=== PATIENT | female | born 1945 | race Caucasian/White ===

== ENCOUNTER 2017-09-04 08:52 | Observation (INO) | payer MEDICARE, OTHER ==
[~2017-09-04 08:52] MED LIST: RINGER'S SOLUTION,LACTATED 1,000 ML IV PRN; ceFAZolin SODIUM 1 GM VIAL IV PRN
[2017-09-04] MEDS ORDERED: RINGER'S SOLUTION,LACTATED 1,000 ML IV ONE ×3 (09:50→11:31)
--- NOTE | 2017-09-04 12:02 | OR ---
Operative Report - Dictated Report Narrative: Date: 09/04/2017 Physician: Lm Bartholomew M.D. Coffee Grower: Sai Durham PA-C Preoperative diagnosis: Right intra-articular olecranon fracture Postoperative diagnosis: Right intra-articular olecranon fracture Procedure: Open reduction internal fixation of right olecranon fracture Anesthesia: General Plus regional Complications: None Estimated blood loss: Minimal Tourniquet time: 80 Minutes at 250 mmHg Specimens: None Retained implants: Andujar and nephew 6.5 mm x 110 mm cannulated partially threaded screw and washer, 18-gauge stainless steel wire Drains: None Indications: Mariam is a 72 year-old female who fell from standing height and sustained a right displaced olecranon fracture. She was initially seen in the emergency department and placed in a temporary splint and then followed up in the orthopedic clinic for further evaluation. Plain films from the emergency department demonstrated a simple, displaced, intra-articular fracture of the right olecranon. Given the patient's age, activity level, and displacement of the fracture with intra-articular involvement I recommended open reduction internal fixation. The risks, benefits, and alternatives were discussed in clinic. The risks being bleeding, infection, nerve, tendon, blood vessel injury , malunion/nonunion, stiffness, persistent pain, wound complications, and symptomatic implants. Consent was obtained in the clinic. Procedure: After marking the correct extremity in the preoperative holding area, a timeout was performed in the operating room. General followed by regional anesthetic was performed by the nurse supervisor plating and point assembly without complication. The patient was then placed in the left lateral decubitus position on a beanbag with the operative arm supported by a bone foam ramp. IV antibiotics consisting of 1 g of Ancef were administered prior to the procedure. A well-padded tourniquet was applied to the operative upper arm. The arm was exsanguinated and the tourniquet was inflated to 250 mmHg. the right upper extremity was then prepped and draped in usual sterile fashion. A longitudinal incision was made over the olecranon just medial to the midline to avoid excessive tension on the wound. This was approximately 12 cm in length. A combination of blunt dissection and electrocautery was carried down through the subcutaneous tissue to the level of the proximal ulna. The ulnar nerve was identified by palpation and protected throughout the case. The fracture site was identified and a sharp knife was utilized to debride the fracture edges to obtain good fracture leads. The fracture was held open with a [place] elevator and a pituitary rongeur was used to debride the fracture site of all hematoma and soft tissue. The fracture was then reduced using the distal humerus as a template and utilizing 2 [id number] bone reduction clamps to hold our reduction. Reduction was confirmed using the mini C-arm which demonstrated good reduction and less than 2 mm articular gap. Given the simple nature of the fracture without comminution we chose to proceed with a tension band construct utilizing a partially threaded 6.5 mm cannulated screw. The terminally threaded guidewire was advanced from the tip of the olecranon across the fracture site and into the ulnar shaft using mini C-arm to confirm its position. This was taken across the fracture site by at least 6 cm and our screw length was measured to be 110 mm. The 5.5 mm cannulated drill was then advanced down over the guidewire and drilled to a depth of 115 mm. A 110 mm cannulated partially threaded screw with a washer was then advanced across the fracture site and left about 5 mm proud in order to place our tension wire. Next we turned our attention to placing our tension wire. A site approximately 4 cm distal to the fracture was chosen and subperiosteal dissection was carried out on the dorsal and volar aspect of the ulna and a hole was drilled across the ulna with a 2.0 mm drill bit. An 18-gauge stainless steel wire was then passed through the drill hole and then crossed and passed up and around the screw underneath the washer and then tightened down on both sides using heavy needle drivers. Once the wire was appropriately tensioned the excess wire was removed with the wire coiler and the twisted ends were bent and flatten down to the surface of the ulna so as not to be prominent. We then advanced our 6.5 mm screw with a washer down to bone being careful not to over compress the fracture. We then confirmed the position of our implants and the our fracture reduction on mini C-arm and noted our reduction to be near anatomic with minimal articular gapping at the fracture site. At this point the wounds were copiously irrigated with normal saline. The deep fascia over the ulna was closed with running 0 Vicryl suture. Subcutaneous tissues tissue was then closed with interrupted 3-0 Vicryl. The skin was closed with interrupted 4-0 nylon and sterile dressings consisting of Xeroform, 4 x 4, soft roll, and a posterior long-arm splint were applied.. All sponge, needle, blade, and instrument counts were correct prior to closing the wounds. The patient was awoken and transferred to the postanesthesia care unit in stable condition.
--- NOTE | 2017-09-04 12:58 | OR ---
Anesthesia Procedure Note - Anesthesia Procedure Note Date of Service: 09/04/17 Narrative: Vital Signs - Last Taken Temp 36.4 C L 09/04/17 12:30 Pulse 75 09/04/17 12:50 Resp 16 09/04/17 12:50 BP 175/86 09/04/17 12:50 Pulse Ox 96 09/04/17 12:50 O2 Oxygen Delivery Method Room Air 09/04/17 12:56 ANESTHESIA PROCEDURE NOTE Date of Procedure: 09/04/2016. Time of procedure: 1020. Performed by: Tomás Arboleda CRNA Slackline Operator: None. Preprocedure diagnosis: Right olecranon fracture. Post procedure diagnosis: Same. Procedure: Right ultrasound guided supraclavicular nerve block for postoperative analgesia. Indications: The patient is a 72 -year-old female, who is requesting a right ultrasound-guided supraclavicular nerve block for postoperative analgesia related to low RIF of right olecranon fracture. Findings: See below. Details of the procedure: The tissue over the intended target site was cleansed with ChloraPrep. 1 ml Lidocaine 1 % was infiltrated to the skin and subcutaneous tissue. Under sterile technique and ultrasound guidance a 22-gauge block needle was inserted to the right braclial plexus nerve bundle superior to the clavicle and lateral to the axillary artery. 40 mL's of 0.5% bupivacaine plus epinephrine 1:200,000 was injected after negative aspiration for blood. Needle tip and spread of local anesthetic around the brachial plexus was observed throughout the injection with realtime ultrasound visualization. The needle was removed intact. No complications were noted. The images were retained in the hospital medical database . EBL: Minimal. Fluids: N/A. Specimen: N/A. Post procedure condition: The patient tolerated the procedure well. No complications were noted. Thank you for this consultation. Tomás Arboleda CRNA
[2017-09-04] MEDS ORDERED: hydrALAZINE HCL 20 MG/ML VIAL IV PRN (15:16)
[2017-09-04] MEDS: LISINOPRIL 20 MG TABLET PO SCH (16:48)
--- NOTE | 2017-09-04 21:39 | HP ---
Chief Complaint - Chief Complaint Date of Service: 09/04/17 Time of Service: 21:09 Chief Complaint: Hypertensive urgency, s/p ORIF of right olecranon fracture History of Present Illness: 72 years old female adm to the hospital from medical management from surgical services due to hypertensive urgency post -op. PMH Right arm fracture, no other pertinent medial conditions pt otherwise healthy. pt stated she slipped on ice Dec , she was unconcerned until she noticed that her arm was getting swollen and in pain. She went to [facility] clinic where a X-Ray was obtained and showed she had a Right intra-articular Olecranon fracture. She had appt with ortho and elected procedure for ORIF of right Olecranon fracture today. On adm BP 212/90 after lisinopril 20mg bP 157/92, plan of care discussed with pt she verbalized understanding and agree. - Patient's Past Medical History Patient History - Medical: No pertinent hx Patient History - Cardiac/Respiratory: No pertinent hx Patient History - Cancer: No Hx of Cancer Patient History - Surgical Procedures: Appendectomy, Orthopedic - S/P ORIF right Olecranon fracture Patient History - Other: None LMP (females 10-50): Post-Menopausal - Family History Mother Family History - Medical: , No pertinent hx Family History - Cardiac/Respiratory: No pertinent hx Family History - Cancer: Other - ovarian Sister Family History - Medical: , No pertinent hx Family History - Cardiac/Respiratory: No pertinent hx Family History - Cancer: Other Brother Family History - Medical: , Other Family History - Cardiac/Respiratory: No pertinent hx Family History - Cancer: No pertinent family hx - Social History Living Situations: spouse Abuse History: No History of abuse Psych History: No pertinent hx Smoking Status: Former smoker - quit 2004 Have you smoked in the past 12 months: No Do you dip or chew tobacco: No Alcohol Use: other Drug Use: none Review Of Systems (GEN) - Review of Systems Generalized/Overall Review: Present: No Symptoms Reported EENTM: Present: No Symptoms Reported Respiratory: Present: No Symptoms Reported Cardiac: Present: No Symptoms Reported Abdominal: Present: No Symptoms Reported Genitourinary: Present: No Symptoms Reported Musculoskeletal: Present: Other - Right arm pain s/p ORIF, swelling to right hand and fingers Neurological: Present: Tingling - Fingers right hand Skin: Present: No Symptoms Reported Allergies/Adverse Reactions: Allergies Allergy/AdvReac Type Severity Reaction Status Date / Time acetaminophen [From Tylenol] Allergy Intermediate Other Verified 09/04/17 17:20 Home Medications: HOME MEDICATIONS oxyCODONE HCL [Oxycodone] 5 mg PO Q4H PRN #40 tablet 09/04/17 [Last Taken Unknown] Exam - Exam Vital Signs: Vital Signs - Last Taken Temp 36.4 C L 09/04/17 19:19 Pulse 71 09/04/17 19:19 Resp 16 09/04/17 19:19 BP 177/86 09/04/17 19:19 Pulse Ox 99 09/04/17 19:19 Constitutional: Present: Alert, Oriented x3, Cooperative, No distress, Elderly ENT Exam: Present: hearing grossly normal Eye Exam: bilateral eye: normal inspection Neck: Present: full range of motion Back Exam: Present: normal inspection Breasts: Present: Exam deferred Respiratory: Present: chest non-tender, lungs clear, normal breath sounds, no respiratory distress Cardiovascular/Chest: Present: normal peripheral pulses, regular rate, rhythm, no chest tenderness, no edema, no gallop, no murmur Peripheral Pulses: dorsalis-pedis (R): 3+, dorsalis-pedis (L): 3+ Abdomen: Present: Normal bowel sounds, soft, nontender, nondistended, no rebound tenderness /Rectal: Present: Exam deferred Extremity: Present: other - Right arm immobile sling s/p ORIF, Skin Exam: Present: normal color, warm/dry, no cyanosis Neurologic: Present: oriented x 3 Appearance: Present: appropriate appearance Eye contact: Present: cooperative, good eye contact Thoughts: Present: normal thought pattern Assessment/Plan - Narrative Narrative: Hypertensive urgency On adm BP 212/90, post op pt BP continue to remain elevated Hospitalist consulted for medical management Lisinopril and Hydralazine PRN, repeated BP 157/92 after Lisinopril 20mg Will continue to monitor VS POD#0 ORIF of right Olecranon fracture secondary to Right intra-articular Olecranon fracture pt stated she slipped on Ice Aug 25, injury arm but didnt seek help until a few days later She was seen at the [facility] in [place] where she was diagnoses with the fracture She followed up with ortho service and had elective procedure done today Code status: Full VTE ppx: SCD and ambulate GI ppx: pepcid Time: 45 minutes and case discussed with Dr Butcher - Procedures Results: Open reduction internal fixation of right olecranon fracture - Assessment/Plan (1) Hypertensive urgency Problem: Acute (2) S/P ORIF (open reduction internal fixation) fracture Problem: Acute
[2017-09-04] MEDS: FAMOTIDINE 20 MG TABLET PO SCH (21:45)
[2017-09-05] MEDS: oxyCODONE HCL 5 MG TABLET PO PRN ×3 (00:53→13:26)
--- NOTE | 2017-09-05 06:39 | DS ---
(1) Hypertensive urgency Problem: Resolved (2) S/P ORIF (open reduction internal fixation) fracture Problem: Acute (3) Hypertension Problem: Acute Qualifiers: Hypertension type: essential hypertension Qualified Code(s): I10 - Essential (primary) hypertension Description of Stay: 72 years old female adm to the hospital from medical management from surgical services due to hypertensive urgency post -op. PMH Right arm fracture, no other pertinent medial conditions pt otherwise healthy. pt stated she slipped on ice Aug 25, she was unconcerned until she noticed that her arm was getting swollen and in pain. She went to [facility] clinic where a X-Ray was obtained and showed she had a Right intra-articular Olecranon fracture. She had appt with ortho and elected procedure for ORIF of right Olecranon fracture. On adm BP 212/ 90 after lisinopril 20mg BP 157/92--->144/69. During this adm pt remain medically stable, pain was well controlled and she is stable for discharge home. She will follow up with Dr Butcher for Hypertension, plan to monitor blood pressure at home and continue with Lisinopril 20mg daily. Her filled prescription for pain medications. She will see ortho service for further management post-op. Procedures Performed: see notes below List Procedures: POD#1 S/P ORIF of right Olecranon fracture. Discharge Disposition: Home self care Disposition: Home self-care Condition: Stable Discharge Activity: Activity as tolerated Discharge Diet: Low salt Care Home Therapy: Physicial Therapy Prescriptions (Any new or edited meds): Lisinopril 20 mg PO DAILY #30 tablet Complete Home Medications List: Complete Home Medication List: oxyCODONE HCL [Oxycodone] 5 mg PO Q4H PRN #40 tablet 09/04/17 Lisinopril 20 mg PO DAILY #30 tablet 09/05/17
[2017-09-05] MEDS: LISINOPRIL 20 MG TABLET PO SCH (09:18)
[2017-09-05] MEDS: FAMOTIDINE 20 MG TABLET PO SCH (09:19)
[2017-09-05 10:31] VITALS: BP 136/63
== END 2017-09-05 13:42 | disposition home or self-care (01) ==
LOC: AMB 08:52 → MS 14:38
PROVIDERS: ADMIT Internal Medicine; ATTEND Internal Medicine
PROC: 0PSK04Z Reposition Right Ulna with Internal Fixation Device, Open Approach (ICD-10-PCS; principal; 2017-09-04)
DX: S52.031A Displaced fracture of olecranon process with intraarticular extension of right ulna, initial encounter for closed fracture (principal); I16.0 Hypertensive urgency; I10 Essential (primary) hypertension; Z68.21 Body mass index [BMI] 21.0-21.9, adult
CPT/HCPCS: 24685; G0378; G0379